=== PATIENT | female | born 1970 | race Caucasian/White ===

== ENCOUNTER 2020-12-07 13:26 | Emergency (ER) | payer OTHER ==
[2020-12-07 14:59] LABS: HEMOGLOBIN 14.3 gm/dl (12.3-15.3); RED BLOOD COUNT 4.69 M/UL (4.00-5.10); WHITE BLOOD COUNT 13.7 K/UL (4.5-11.0)
[2020-12-07 16:09] LABS: BUN/CREATININE RATIO 15 (0-10)
[2020-12-07] MEDS ORDERED: ZITHROMAX1 GM PO (16:25)
[2020-12-07] MEDS ORDERED: CEFUROXIME500 MG PO (16:25)
[2020-12-07] MEDS ORDERED: VENTOLIN HFA 66.7 GM INH (16:25)
== END 2020-12-07 16:55 | disposition home or self-care (01) ==
LOC: ER1 13:26
PROVIDERS: Preventive Medicine Occupational Medicine
DX: J18.9 Pneumonia, unspecified organism (principal); E86.0 Dehydration
CPT/HCPCS: 71045; 80053; 82009; 82140; 83540; 83550; 83690; 83735; 84100; 85025; 85610; 85652; 85730; 86140; 96374; 99283; J0696